=== PATIENT | female | born 1955 | race Caucasian/White ===

== ENCOUNTER 2020-06-03 11:08 | Outpatient (CLI) | payer MEDICARE ==
[~2020-06-03 11:08] MED LIST: ENAL20TA9 PO; ESTR1VAG VG; METF500T17 PO; SIMV40TA20 PO; VENL75TA PO
== END 2020-06-03 23:59 | disposition home or self-care (01) ==
LOC: CFH 11:08
PROVIDERS: ATTEND Internal Medicine
DX: Z13.820 Encounter for screening for osteoporosis (principal); M81.0 Age-related osteoporosis without current pathological fracture; M85.88 Other specified disorders of bone density and structure, other site
CPT/HCPCS: 77080